=== PATIENT | female | born 1990 | race Two or more races ===

== ENCOUNTER 2017-10-24 13:15 | Emergency (ER) | payer BC ==
[~2017-10-24] VITALS: Ht 162.6 cm; Wt 54.4 kg
[2017-10-24] MEDS ORDERED: Sodium Chloride 500ML 500 ML IV ONE (13:16)
--- NOTE | 2017-10-24 13:32 | Emergency Room Report ---
History of Present Illness General Chief Complaint: Seizure Source: EMS Present Illness HPI 27-year-old female patient presents ER brought in by ambulance due to seizure. Reports first seizure. Reports was observed however does not know if she hit her head. Denies loss of bowel or bladder incontinence. Denies history of seizures. Denies drug use. Reports that she takes Prozac, Wellbutrin, and Adderall for ADHD, depression, anxiety. Reports smokes marijuana to help with sleep at night. Denies acute symptoms at this time. Denies fever, chest pain, shortness of breath, abdominal pain, vomiting. denies past cardiac history. Allergies: Coded Allergies: No Known Allergies (Unverified , 10/24/17) Patient History Past Medical History: see triage record Reviewed Nursing Documentation: PMH: Agreed; PSxH: Agreed Nursing Documentation-PMH Past Medical History: No History, Except For History Of Psychiatric Problem: Yes - anxiety. depression. Review of Systems All Other Systems: negative except mentioned in HPI Physical Exam Vital Signs Date Time Temp Pulse Resp B/P (MAP) Pulse Ox O2 Delivery O2 Flow Rate FiO2 10/24/17 13:11 98.7 108 14 135/92 99 Room Air 98.8 Sp02 EP Interpretation: reviewed, normal General Appearance: well appearing, no apparent distress, alert, GCS 15, non- toxic Head: normocephalic, atraumatic, other - negative Macdonald sign, negative Raccoon eyes Eyes: bilateral eye normal inspection, bilateral eye PERRL ENT: hearing grossly normal, normal pharynx, no angioedema, normal voice, TMs + canals normal, uvula midline, moist mucus membranes Neck: full range of motion, no meningismus, no bony tend Respiratory: lungs clear, normal breath sounds, no rhonchi, no respiratory distress, no accessory muscle use, no wheezing, speaking full sentences Cardiovascular #1: regular rate, rhythm, no edema Gastrointestinal: non tender, soft, no mass, non-distended, no guarding, no rebound Genitourinary: no CVA tenderness Musculoskeletal: back normal, digits/nails normal, gait/station normal, normal range of motion, non-tender Neurologic: alert, oriented x3, responsive, traffic survey technician III-XII nml as tested, motor strength/tone normal, sensory intact, cerebellar normal, normal gait, speech normal Psychiatric: mood/affect normal Skin: no rash Lymphatic: no adenopathy Medical Decision Making PA Attestation Dr. Ayers is my supervising Physician whom patient management has been discussed with. Diagnostic Impression: Primary Impression: Seizure ER Course Pt. presents to the ED c/o seizure BIB ambulance. Ddx considered but are not limited to seizure disorder, drug intoxication, alcohol use. Began workup for seizure disorder. Order labs and IV fluids. Due to frst seizure, will order head CT, EKG, and CXR. Vital signs: are WNL, pt. is afebrile ED COURSE: Cranial nerves intact as tested, no focal neuro deficits, patient observed walking in the ER. Urine drug positive for amphetamines and marijuana, patient admitted to marijuana use. Amphetamine likely due to history of Adderall use,CURES reviewed, shows multiples prescriptions from single provider. Serum alcohol <3 CBC and CMP unremarkable Troponin negative salicylates and acetaminophen level was not elevated. UA unremarkable, mild elevation of occult blood, follow-up with primary care provider to discuss further treatment and referral. May be related to patient currently on menstrual period. EKG negative for ST elevations, mild QT prolongation noted, may be secondary to current medications, instructed to discuss discontinuing Wellbutrin medication at followup with PCP. Medication needs to be tapered before discontinuation. CXR negative for acute disease. CT Head Impression: Negative for acute intracranial bleed or mass effect Equivocal focus of low-attenuation within the right side of the ata, most likely artifact but lacunar infarct or other pathology not completely excludable. Consider contrast MRI for more sensitive and specific characterization of stated clinical history of new onset seizures. Will order MRI per radiology to rule out underlying pathology. MRI brain shows no acute disease. Discuss results with the patient. Provided patient with copy of results. Instructed patient to followup with PCP and discuss results of report with patient, discuss need for further treatment and referral. Provided with neurology referral. Patient instructed to follow up with neurologist for further treatment and assessment. Patient states understanding and agreement to treatment plan. Patient is at baseline mental status, able to ambulate and in no acute distress , hemodynamically stable. Patient is stable for discharge home. DISCHARGE: At this time pt is stable for d/c to home. Patient is resting comfortably, in no acute distress, nontoxic appearing, talking without difficulty. Patient to take medications as instructed Will provide with patient care instructions and any necessary prescriptions. Care plan and follow-up instructions provided. Patient instructed to follow-up with primary care provider in 3 - 5 days. Patient questions asked and answered. Patient reports understanding and agreement to treatment plan. ER precautions given. Patient instructed to return to ER immediately for any new or worsening of symptoms including but not limited to increasing SOB, persistent fever. - Please note that this Emergency Department Report was dictated using [employer]classified ad taker technology software, occasionally this can lead to erroneous entry secondary to interpretation by the dictation equipment. Labs Test 10/24/17 13:15 White Blood Count 5.5 K/UL (4.8-10.8) Red Blood Count 5.18 M/UL (4.20-5.40) Hemoglobin 14.6 G/DL (12.0-16.0) Hematocrit 45.8 % (37.0-47.0) Mean Corpuscular Volume 88 FL (80-99) Mean Corpuscular Hemoglobin 28.2 PG (27.0-31.0) Mean Corpuscular Hemoglobin Concent 31.9 G/DL (32.0-36.0) Red Cell Distribution Width 11.4 % (11.6-14.8) Platelet Count 205 K/UL (150-450) Mean Platelet Volume 12.2 FL (6.5-10.1) Neutrophils (%) (Auto) 58.7 % (45.0-75.0) Lymphocytes (%) (Auto) 31.3 % (20.0-45.0) Monocytes (%) (Auto) 6.9 % (1.0-10.0) Eosinophils (%) (Auto) 2.2 % (0.0-3.0) Basophils (%) (Auto) 1.0 % (0.0-2.0) Sodium Level 140 MMOL/L (136-145) Potassium Level 3.9 MMOL/L (3.5-5.1) Chloride Level 104 MMOL/L (98-107) Carbon Dioxide Level 26 MMOL/L (21-32) Anion Gap 10 mmol/L (5-15) Blood Urea Nitrogen 9 mg/dL (7-18) Creatinine 0.8 MG/DL (0.55-1.30) Estimat Glomerular Filtration Rate > 60 mL/min (>60) Glucose Level 94 MG/DL (74-106) Calcium Level 8.9 MG/DL (8.5-10.1) Total Bilirubin 0.3 MG/DL (0.2-1.0) Aspartate Amino Transf (AST/SGOT) 17 U/L (15-37) Alanine Aminotransferase (ALT/SGPT) 25 U/L (12-78) Alkaline Phosphatase 69 U/L (46-116) Troponin I 0.000 ng/mL (0.000-0.056) Total Protein 8.3 G/DL (6.4-8.2) Albumin 4.5 G/DL (3.4-5.0) Globulin 3.8 g/dL Albumin/Globulin Ratio 1.2 (1.0-2.7) Salicylates Level 1.0 ug/mL (2.8-20) Acetaminophen Level < 2 MCG/ML (10-30) Serum Alcohol < 3 mg/dL EKG Diagnostic Results Rate: normal Rhythm: NSR ST Segments: no acute changes Other Impression prolonged QT/QTc 384/482 Incomplete RBBB ASA given to the pt in ED: No PA Scribe Text Kamar Bridges PA-C Rhythm Strip Diag. Results EP Interpretation: yes Rate: 95 Rhythm: NSR, no PVC's, no ectopy PA Scribe Text Kamar Bridges PA-C Chest X-Ray Diagnostic Results Chest X-Ray Diagnostic Results : Chest X-Ray Ordered: Yes # of Views/Limited/Complete: 1 View Indication: Chest Pain EP Interpretation: Yes PA Xray: Interpretation reviewed, by supervising MD, and agrees with findings. Interpretation: no consolidation, no effusion, no pneumothorax, no acute cardiopulmonary disease Impression: No acute disease PA Scribe Darien Bridges PA-C CT/MRI/US Diagnostic Results CT/MRI/US Diagnostic Results #1: Imaging Test Ordered: CT head Impression Impression: Negative for acute intracranial bleed or mass effect Equivocal focus of low-attenuation within the right side of the ata, most likely artifact but lacunar infarct or other pathology not completely excludable. Consider contrast MRI for more sensitive and specific characterization of stated clinical history of new onset seizures CT/MRI/US Diagnostic Results #2: Imaging Test Ordered: MRI brain Impression [facility] report: unremarkable brain MRI. The pontine abnormality question on CT was due to artifact. Last Vital Signs Date Time Temp Pulse Resp B/P (MAP) Pulse Ox O2 Delivery O2 Flow Rate FiO2 10/24/17 13:11 98.7 108 14 135/92 99 Room Air 98.8 Disposition: HOME, SELF-CARE Condition: Stable Patient Instructions: Seizure, Adult Additional Instructions: Followup with primary care provider in 2-3 days. Request referral to neurology. Discontinue Wellbutrin until follow-up with PCP, may be responsible for Seizure. Patient questions asked and answered. ER precautions given, patient instructed to return to ER immediately for any new or worsening of symptoms. Torsten Bridges Oct 24, 2017 13:32
[2017-10-24 13:34] LABS: EOSINOPHILS % (AUTO) 2.2 % (0.0-3.0); HEMATOCRIT 45.8 % (37.0-47.0); HEMOGLOBIN 14.6 G/DL (12.0-16.0); LYMPHOCYTES % (AUTO) 31.3 % (20.0-45.0); MEAN CORPUSCULAR VOLUME 88 FL (80-99); MONOCYTES % (AUTO) 6.9 % (1.0-10.0); NEUTROPHILS % (AUTO) 58.7 % (45.0-75.0); PLATELET COUNT 205 K/UL (150-450); RED BLOOD COUNT 5.18 M/UL (4.20-5.40); RED CELL DISTRIBUTION WIDTH 11.4 % (11.6-14.8); WHITE BLOOD COUNT 5.5 K/UL (4.8-10.8)
[2017-10-24 13:41] VITALS: BP 135/92
[2017-10-24 13:50] LABS: ANION GAP 10 mmol/L (5-15); BLOOD UREA NITROGEN 9 mg/dL (7-18); CALCIUM 8.9 MG/DL (8.5-10.1); CARBON DIOXIDE 26 MMOL/L (21-32); CHLORIDE 104 MMOL/L (98-107); CREATININE 0.8 MG/DL (0.55-1.30); POTASSIUM 3.9 MMOL/L (3.5-5.1); SODIUM 140 MMOL/L (136-145)
[2017-10-24 13:54] LABS: ALANINE AMINOTRANSFERASE 25 U/L (12-78); ALBUMIN 4.5 G/DL (3.4-5.0); ALBUMIN/GLOBULIN RATIO 1.2 (1.0-2.7); ALKALINE PHOSPHATASE 69 U/L (46-116); ASPARTATE AMINO TRANSFERASE 17 U/L (15-37); BILIRUBIN,TOTAL 0.3 MG/DL (0.2-1.0)
[2017-10-24 14:51] LABS: BILIRUBIN, URINE NEGATIVE (NEGATIVE); COLOR,URINE PALE YELLOW; GLUCOSE, URINE (UA) NEGATIVE (NEGATIVE); KETONES,URINE NEGATIVE (NEGATIVE); LEUKOCYTE ESTERASE ,URINE NEGATIVE (NEGATIVE); NITRITE,URINE NEGATIVE (NEGATIVE); PH,URINE 7 (4.5-8.0); PROTEIN,URINE NEGATIVE (NEGATIVE); UROBILINOGEN,URINE NORMAL MG/DL (0.0-1.0)
[2017-10-24 15:01] LABS: APPEARANCE,URINE SLIGHTLY CLOUDY
[2017-10-24 15:30] VITALS: BP 127/89
--- NOTE | 2017-10-24 15:32 | Diagnostic Imaging Report ---
Indication: Seizures, new onset Technique: Continuous helical CT scanning of the head was performed without intravenous contrast material. Axial and coronal 5 mm sections were generated. Radiation dose was minimized using automated exposure control Dose: Total Dose Length Product - DLP 1333.[address] Dose Index - CTDIvol(s) 70.38 mGy. Comparison: none Findings: The ventricular system is normal in size and configuration. There is no shift of midline structures. No abnormal extra-axial fluid collections are noted. There is no evidence of intracerebral bleeding. There is questionably a focus of low-attenuation in the right side of the ata, most likely artifactual due to beam hardening. No other abnormal high or low density areas are noted within the brain. Normal lei-white differentiation. Intact calvarium. Visualized orbits and sinuses are unremarkable Impression: Negative for acute intracranial bleed or mass effect Equivocal focus of low-attenuation within the right side of the ata, most likely artifact but lacunar infarct or other pathology not completely excludable. Consider contrast MRI for more sensitive and specific characterization of stated clinical history of new onset seizures The CT scanner at [facility] [place] is accredited by the [employer] and the scans are performed using protocols designed to limit radiation exposure to as low as reasonably achievable to attain images of sufficient resolution adequate for diagnostic evaluation. Noncontrast
--- NOTE | 2017-10-24 15:50 | Diagnostic Imaging Report ---
Indication: Dyspnea Technique: One view of the chest Comparison: none Findings: Lungs and pleural spaces are clear. Heart size is normal Impression: No acute process
[2017-10-24] MEDS ORDERED: Gadavist 7.5mMol/7.5ml vial IV PRN (17:30)
[2017-10-24 18:27] VITALS: BP 130/88
--- NOTE | 2017-10-24 18:27 | Diagnostic Imaging Report ---
EXAM: MR Head With Intravenous Contrast CLINICAL HISTORY: SZ TECHNIQUE: Magnetic resonance images of the head/brain with intravenous contrast in multiple planes. COMPARISON: CT scan of same date. FINDINGS: Brain: Unremarkable. No mass. No hemorrhage. No acute infarct. Ventricles: Unremarkable. No ventriculomegaly. Bones/joints: Unremarkable. Sinuses: Unremarkable as visualized. No acute sinusitis. Mastoid air cells: Unremarkable as visualized. No mastoid effusion. Orbits: Unremarkable as visualized. IMPRESSION: Unremarkable brain MRI. The pontine abnormality questioned on CT was due to artifact.
--- NOTE | 2017-10-26 14:24 | Cardiology Report ---
APPROVED REPORT EKG Measurement Heart [id number] Normal sinus rhythm Incomplete right bundle branch block Prolonged QT Abnormal ECG
== END 2017-10-24 18:58 | disposition home or self-care (01) ==
LOC: EDBD 13:15 → EMR 13:30
DX: R56.9 Unspecified convulsions (principal); F41.8 Other specified anxiety disorders
CPT/HCPCS: 36415; 70450; 70553; 71045; 80053; 80307; 81003; 81025; 84484; 85025; 93005; 99284; A9585; G0480; J7040; 80329

== ENCOUNTER 2019-01-16 06:49 | Emergency (ER) | payer BC ==
[~2019-01-16] VITALS: Ht 157.5 cm; Wt 56.7 kg
[2019-01-16 06:57] VITALS: BP 114/77
--- NOTE | 2019-01-16 07:07 | NUR ---
ED Nurse Note: PT WALKED IN DUE TO DOG BITE ON HER RUE HAPPENED AROUND 0630. NO ACTIVE BLEEDING BUT FATTY TISSUE IS EXPOSED. LAST TETANUS SHOT ABOUT 6 YEARS AGO. AAO X4 AND AMBULATORY.
--- NOTE | 2019-01-16 07:08 | Emergency Room Report ---
History of Present Illness General Chief Complaint: Animal Bite Source: Patient Present Illness HPI Patient is a 28-year-old female presented after increased right upper extremity discomfort. She had prior history of depression. She states she was bit by a dog. This occurred approximately 30 minutes prior to arrival. She denies any other locations other than to right upper extremity. She reports having normal movement to her right hand. She denies any numbness or weakness. She reports having pain to the right upper extremity. Bleeding was moderate at the scene. Allergies: Coded Allergies: No Known Allergies (Unverified , 10/24/17) Patient History Last Menstrual Period: 12/2018 Reviewed Nursing Documentation: PMH: Agreed; PSxH: Agreed Nursing Documentation-PMH Past Medical History: No Stated History History Of Psychiatric Problem: Yes - ADHD Review of Systems All Other Systems: negative except mentioned in HPI Physical Exam Vital Signs Date Time Temp Pulse Resp B/P (MAP) Pulse Ox O2 Delivery O2 Flow Rate FiO2 01/16/19 06:57 98.4 66 16 114/77 (89) 98 Room Air General Appearance: well appearing, no apparent distress, alert, GCS 15, non- toxic Head: normocephalic, atraumatic ENT: hearing grossly normal, normal voice Neck: full range of motion, supple Respiratory: no respiratory distress, speaking full sentences Cardiovascular #1: normal inspection Musculoskeletal: normal inspection, back normal, no calf tenderness Neurologic: normal inspection, alert, oriented x3, responsive, patient appointment coordinator III-XII nml as tested, normal gait Psychiatric: mood/affect normal Skin: laceration - 3cm to right upper arm vertically linear, small laceration below this about 0.5 cm not repaired Procedures Laceration/Wound Repair Laceration/Wound Repair : Consent: Emergent Wound Location: upper extremity Wound's Depth, Shape: linear Wound Length (cm): 3 Wound Explored: no foreign body removed Irrigated w/ Saline (ccs): 100 Betadine Prep?: Yes Anesthesia: Lidocaine w/ Epi Volume Anesthetic (ccs): 4 Wound Debrided: minimal Wound Repaired With: sutures Suture Size/Type: 4:0 - 8 Layer Closure?: No Sterile Dressing Applied?: Yes Patient Tolerated: Well Complications: None Medical Decision Making Diagnostic Impression: Primary Impression: Laceration Additional Impression: Dog bite ER Course Patient presented for dog bite. Differential diagnosis include was not limited to foreign body, vascular injury, nerve injury among others. Patient has a benign exam and does not appear to require any imaging or laboratory testing at this time. Patient's laceration was explored thoroughly and devitalized tissue was debrided. Laceration was repaired with interrupted sutures. Patient tolerated this well. She will be discharged home. She was advised wound care. She was advised to have wound rechecked in 3 to 4 days and to have sutures removed in 10 to 14 days. She is advised to return if worse. Last Vital Signs Date Time Temp Pulse Resp B/P (MAP) Pulse Ox O2 Delivery O2 Flow Rate FiO2 01/16/19 06:57 98.4 66 16 114/77 (89) 98 Room Air Status: improved Disposition: HOME, SELF-CARE Condition: Stable Scripts Ibuprofen* (MOTRIN*) 600 Mg Tablet 600 MG ORAL Q8H PRN for For Pain, #20 TAB 0 Refills Prov: Ramirez Carrillo MD 01/16/19 Amoxicillin/Potassium Clav 875-125* (AUGMENTIN 875-125 TABLET*) 1 Each Tablet 1 TAB ORAL TWICE A DAY, #14 TAB Prov: Ramirez Carrillo MD 01/16/19 Ramirez Carrillo MD Jan 16, 2019 07:08
[2019-01-16] MEDS ORDERED: Augmentin 875mg Tab ORAL ONE (07:15)
[2019-01-16] MEDS ORDERED: Lidocaine 1% 10mg/ml/Epi 0.005mg/ml 10ml vial INJ ONE (07:15)
[2019-01-16] MEDS ORDERED: IBUPROFEN600 MG ORAL (07:42)
[2019-01-16] MEDS ORDERED: AUGMENTIN 875-1 EAC1 ORAL (07:42)
[2019-01-16] MEDS ORDERED: Bacitracin Oint UD TOPIC ONE ×2 (07:44→07:45)
[2019-01-16 07:50] VITALS: BP 122/70
--- NOTE | 2019-01-16 07:50 | NUR ---
ER DISCHARGE NOTE: Patient is cleared to be discharged per ERMD, pt is aox4, on room air, with stable vital signs. pt was given dc and prescription instructions, pt was able to verbalize understanding, pt id band removed. pt is able to ambulate with steady gait. pt took all belongings and left with her friend.
== END 2019-01-16 07:50 | disposition home or self-care (01) ==
LOC: EMR 07:09
DX: S41.151A Open bite of right upper arm, initial encounter (principal); F32.9 Major depressive disorder, single episode, unspecified; F90.9 Attention-deficit hyperactivity disorder, unspecified type; W54.0XXA Bitten by dog, initial encounter; Y92.9 Unspecified place or not applicable
CPT/HCPCS: 99282